=== PATIENT | male | born 1975 | race Caucasian/White ===

== ENCOUNTER → 2019-04-18 | Outpatient (CLI) | payer BC | LOC: M.NUC 12:28 | DX: R10.11 Right upper quadrant pain (principal) ==

== ENCOUNTER → 2020-02-05 | Day surgery (SDC) | payer BC ==
[~2020-02-05] MED LIST: NOHOMEMEDICATIONS
--- NOTE | 2020-02-05 16:29 | EKG ---
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
--- NOTE | 2020-02-10 08:59 | OP ---
[address] [address] OPERATIVE REPORT Name: LIZETTE HENNESSY Room: [facility].#: [id number] Admission: 02/05/20 Attend Phys: Gay Alcantar DO Discharge: Date of : 77 Report #: [id number] THIS REPORT FOR: //name// cc: LOW - Family physician unknown FAM - Family physician unknown ~ THIS REPORT FOR: //name// CC: Gay KELSEY unknown DICTATED BY: Kumar Desir DO DATE OF SERVICE: 02/05/2020 PREOPERATIVE DIAGNOSIS: Right inguinal hernia. POSTOPERATIVE DIAGNOSIS: Right indirect inguinal hernia. SURGEON: Gay Alcantar DO CO-SURGEON: Kumar Desir, PGY-3. GRAIN ELEVATOR MOTOR STARTER: Saji Ballesteros, PGY-5. SURGERY PERFORMED: Right inguinal hernia repair with mesh and a right inguinal nerve block. ANESTHESIA: General and local. ESTIMATED BLOOD LOSS: 3 mL. SPECIMENS REMOVED: None. COMPLICATIONS: None. IMPLANTS: ProGrip mesh. HISTORY OF PRESENT ILLNESS: The patient is a 44-year-old male who presented to the office with complaint of right groin bulge. He said he was doing some heavy lifting and felt a pop in his right groin. He did have some associated discomfort with this bulge but denied any significant pain or change in bowel function. On physical exam, we did appreciate a reducible right inguinal hernia and discussed the need for surgical intervention. Risks, complications, alternatives, and benefits discussed at length and he agreed to proceed with surgery. [facility] [address] [place] [address] OPERATIVE REPORT Name: LIZETET HENNESSY Room: [facility]#: [id number] Admission: 02/05/20 Attend Phys: Gay Alcantar DO Discharge: Date of : 77 Report #: [id number] DESCRIPTION OF PROCEDURE: After consent was obtained, the patient was taken to the operating room and placed in the supine position. SCDs applied to bilateral lower extremities. A safety belt placed across the patient's waist. Ancef 2 grams given for surgical prophylaxis. The patient underwent general LMA intubation without any complication. The patient was then prepped and draped in standard sterile fashion. Timeout was performed to confirm the patient and procedure. At this point, the pubic tubercle and the ASIS were marked out and care home point was delineated by a marker. Incision was made along the skin crease using a #15 blade scalpel. Electrocautery was used for hemostasis and dissected down to the level of subcutaneous tissue. There was a small vein that was carefully ligated using 2-0 silk sutures. Electrocautery was used to dissect down to the level of the external oblique fascia. Once the external oblique fascia was encountered, it was cleared off from any overlying tissue and that was grasped between 2 hemostats. Metzenbaum scissors were used to incise the external oblique fascia and the incision was taken down caudad towards the external ring and again more cephalad up towards the ASIS. Once the external oblique fascia was incised, the underlying tissues were carefully cleared off using combination of blunt dissection with finger to help delineate the cord structures. The femoral vessels were identified laterally and inferiorly and these were avoided being careful to use the pubic tubercle as a landmark. The spermatic cord and the structures were isolated using blunt dissection and a Sujey drain was used to secure these structures. The inguinal floor appeared to be intact. There was no evidence of a direct inguinal hernia. At this point, the cord was inspected and cremasteric fibers and fibrinous tissue were carefully dissected back towards the internal inguinal ring to help isolate the hernia sac. There appeared to be a cord lipoma along with hernia sac that was carefully dissected off of the spermatic cord. Once the hernia sac and contents were dissected off of the cord, these were reduced back into the internal inguinal ring and a ProGrip plug was created and used to plug the internal inguinal ring and preventing prolapse of the hernia contents. Again the inguinal floor was inspected. No evidence of any herniation. The spermatic cord was inspected carefully. There was no evidence of any further indirect hernia. ProGrip mesh was then fashioned and placed up against the pubic tubercle with tails wrapping around the spermatic cord reinforcing the inguinal floor. Once the mesh appeared to be in good place, a small single stitch of 0 Prolene was used to secure the mesh tails on either side of the spermatic cord, there was good room around the spermatic cord and there was no evidence of strangulation. At this point, the external oblique aponeurosis was brought together using running stitch of 3-0 Vicryl. A 0.5% Marcaine was injected just below the external oblique aponeurosis and subcutaneous tissue was then reapproximated using 3-0 Vicryl in a layered fashion, 4-0 Monocryl was used in a subcuticular fashion to close the skin. An inguinal nerve block with 10 mL of 0.5% Marcaine was injected just medial to the right ASIS for inguinal nerve block. At this point, the patient tolerated the procedure well. [facility], [address] [address] OPERATIVE REPORT Name: LIZETTE HENNESSY Room: [facility]#: [id number] Admission: 02/05/20 Attend Phys: Gay Alcantar DO Discharge: Date of : 77 Report #: [id number] instrument, and sponge counts were correct at the end of the case. He was awoken from anesthesia and transferred to PACU in stable condition. <ELECTRONICALLY SIGNED> By: Gay Alcantar DO 02/10/20 0859 [id number] Alcantar DO /nt
== END | disposition home or self-care (01) ==
LOC: M.SUR 07:01
DX: K40.90 Unilateral inguinal hernia, without obstruction or gangrene, not specified as recurrent (principal); D17.6 Benign lipomatous neoplasm of spermatic cord